=== PATIENT | male | born 1960 | race African-American/Black ===

== ENCOUNTER 2020-02-12 09:57 | Emergency (ER) | payer MEDICAID, SELFPAY ==
[~2020-02-12] VITALS: Ht 167.6 cm; Wt 68.6 kg
--- NOTE | 2020-02-12 10:30 | NUR ---
ASSUMED CARE OF PT AT THIS TIME FROM TRIAGE. AMBULATORY TO ROOM WITH STEADY GAIT. 59 Y/O M PRESENTS STATING "LEFT SHOULDR PAIN FOR 4 MONTHS, SOME SHEET ROCK FELL ON IT 4 MONTHS AGO, HAVING PAIN SINCE, SEEMED OKAY AND THEN YESTERDAY LIFTING AT WORK AND HAD SOME MORE PAIN." CMS INTACT. PULSE NORMAL AND STRONG. +ROM WITH PAIN. ABLE TO LIFT ARM ABOVE HEAD BUT STATES "PAINFUL." CONT PULSE OX, BP MONITORS APPLIED. VSS. CALL LIGHT IN REACH. FALL PRECAUTIONS IN PLACE. SIDE RAILS UPX2. A&OX4. SHANIKA BONILLA AT BEDSIDE FOR EVALUATION.
--- NOTE | 2020-02-12 10:42 | NUR ---
PT IN RAD, TO MEDICATE UPON RETURN
[2020-02-12] MEDS ORDERED: KETOROLAC 30 MG/1 ML ONE (10:43)
--- NOTE | 2020-02-12 10:53 | NUR ---
PT BACK FROM RAD, MEDICATED PER MD ORDER FOR 10/10 LEFT SHOULDER PAIN. VSS. CALL LIGHT IN REACH. FALL PRECUATIONS IN PLACE. DENIES NEED TO USE RESTROOM.
[2020-02-12] MEDS ORDERED: KETOROLAC 30 MG/1 ML IM ONE (11:00)
--- NOTE | 2020-02-12 11:05 | NUR ---
PT UP FOR RECHECK
--- NOTE | 2020-02-12 11:14 | NUR ---
SHANIKA BONILLA AT BEDSIDE FOR RECHECK, DISCUSSING DISCHARGE POC
[2020-02-12 11:36] VITALS: BP 141/74
== END 2020-02-12 11:39 | disposition home or self-care (01) ==
LOC: ED 10:41
DX: S46.911A Strain of unspecified muscle, fascia and tendon at shoulder and upper arm level, right arm, initial encounter (principal); F17.200 Nicotine dependence, unspecified, uncomplicated; W20.8XXA Other cause of strike by thrown, projected or falling object, initial encounter; Y93.89 Activity, other specified; Y92.89 Other specified places as the place of occurrence of the external cause; Y99.8 Other external cause status
CPT/HCPCS: 73030; 96372; 99283; J1885